=== PATIENT | male | born 1990 | race Caucasian/White ===

== ENCOUNTER 2017-04-09 12:40 | Emergency (ER) | payer SELFPAY ==
--- NOTE | 2017-04-09 13:03 | ER Document Report ---
ED General - General Chief Complaint: Medical Clearance Stated Complaint: BLOOD PRESSURE HIGH Time Seen by Provider: 04/09/17 12:52 Notes: Patient is here because he says he is withdrawing from heroin not having had any for 3 days. He did have some morphine yesterday. Complaining of his stomach being "in knots", shaky, nauseated, abdominal pain, etc. He says that he is trying to get into [facility] and[facility]or [facility]. Denies taking any other drugs except for the heroin. Has some chest pains. Says that he was seen here a couple of months ago for fluid around his heart that they wanted to stick a needle into and drain and he did not stay for treatment and has not followed up on that condition. Has not had any fever. Has had some sweats. TRAVEL OUTSIDE OF THE [place] IN LAST 30 DAYS: No - Related Data Allergies/Adverse Reactions: No Known Allergies Allergy (Unverified 10/02/12 22:33) Past Medical History - Social History Smoking Status: Current Every Day Smoker Frequency of alcohol use: Social Drug Abuse: Heroin, Other Family History: None, Reviewed & Not Pertinent Patient has suicidal ideation: No Patient has homicidal ideation: No - Past Medical History Cardiac Medical History: Reports: Other - See HPI regarding fluid around his heart. 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 EENT: Denies eye, ear, nose or mouth or throat pain or other symptoms. CARDIOVASCULAR: Has occasional chest pains, not at this time. RESPIRATORY: Denies cough, chest congestion, or shortness of breath. GASTROINTESTINAL: Patient has a generalized abdominal cramping and nausea but has not been vomiting. Has not had diarrhea. GENITOURINARY: Denies difficulty or painful urinating, urinary frequency, blood in urine. MUSCULOSKELETAL: Denies back or neck pain. Denies joint pain or swelling. SKIN: Denies rash or skin lesions. NEUROLOGICAL: Denies LOC or altered mental status. Denies headache. Denies sensory loss or motor deficits. ALL OTHER SYSTEMS REVIEWED AND NEGATIVE. Physical Exam - Vital signs Vitals: Temp Pulse Resp BP Pulse Ox 98.7 F 72 24 H 141/88 H 99 04/09/17 12:41 04/09/17 12:41 04/09/17 12:41 04/09/17 12:41 04/09/17 12:41 Interpretation: Normal - Notes Notes: PHYSICAL EXAMINATION: GENERAL: Well-appearing, in no acute distress. Vital signs are all essentially normal. Minor elevation of blood pressure and respiratory rate. Afebrile. HEAD: Atraumatic, normocephalic. EYES: Pupils equal round and reactive to light, extraocular movements intact. ENT: oropharynx clear without exudates. Moist mucous membranes. NECK: Normal range of motion, supple. LUNGS: Breath sounds clear and equal bilaterally. HEART: Regular rate and rhythm without murmurs. ABDOMEN: Soft, nontender. No guarding or rebound. BACK: No tenderness throughout entire back. EXTREMITIES: Normal range of motion without pain. NEUROLOGICAL: Normal speech, normal gait. Normal sensory, motor, and reflex exams. Awake, alert, and oriented x3. Cranial nerves normal. PSYCH: Normal mood, normal affect. Anxious. SKIN: Warm, dry, no rashes. Course - Re-evaluation Re-evalutation: 04/09/17 14:54 Reviewing patient's visits in November 2015, but nothing since then. I am not sure where the patient got that he was here a couple of months ago when it has actually been 15 or 16 months. Further, when he was here in November,, his final diagnosis was pericarditis, but his EKG was read by the scene as suggestive of pericarditis. The patient's chest x-ray showed a very small heart and no evidence of fluid around it and there is no mention of trying to stick a needle in the fluid. I think the patient has early repolarization and a normal variant ST elevation and nothing pathologic. All of his lab work here today is normal, normal white cell count, no fever, etc. Patient's drug screen is positive for not only opioids, but marijuana and cocaine. - Vital Signs Vital signs: Temp Pulse Resp BP Pulse Ox 98.7 F 72 24 H 141/88 H 99 04/09/17 12:41 04/09/17 12:41 04/09/17 12:41 04/09/17 12:41 04/09/17 12:41 - Laboratory Result Diagrams: 04/09/17 13:00 04/09/17 13:00 Laboratory results interpreted by me: 04/09/17 04/09/17 13:00 13:00 Eosinophils % 8.5 H Salicylates < 1.0 L Acetaminophen < 10 L - Diagnostic Test Radiology results interpreted by me: 04/09/17 14:25 Chest x-ray is normal. - EKG Interpretation by Me EKG shows normal: Sinus rhythm Rate: Normal Rhythm: NSR Additional EKG results interpreted by me: 04/09/17 14:25 EKG has some peaked T waves in the precordial leads along with some ST changes that the machine says is suggestive of pericarditis, but I think it is more likely early repolarization which he has had on a previous EKG here a year ago. 04/09/17 14:55 Discharge - Discharge Clinical Impression: Substance abuse Condition: Stable Disposition: HOME, SELF-CARE Additional Instructions: COCAINE ABUSE: Cocaine causes many dangerous medical problems. Problems can occur even with "usual" amounts. Cocaine affects judgement, creating a sense of invulnerability. Cocaine users often make bad decisions that seem "great" at the time. Most cocaine users eventually will be hurt by bad job performance, damaged personal relations, crime, and unsafe sexual practices. Toxic effects of cocaine can include seizures, hallucinations, delusions, high blood pressure, heart damage, or sudden . There's always the risk of a "bad batch." But heart attacks, brain hemorrhages, or cardiac arrest can occur unpredictably even with "normal" use. Injection of cocaine is risky for abscesses, endocarditis (heart infection) , pneumonia, and AIDS. Withdrawal from cocaine often causes anxiety and drug cravings. Some users become paranoid and psychotic. Many treatment programs are available, but you must make the decision to quit. Medication can be prescribed to control the symptoms of cocaine toxicity (beta blockers or benzodiazepines). Withdrawal symptoms may require tranquilizers. NARCOTIC / OPIOD ABUSE: Narcotics and opiods are pain-relieving drugs that are often abused. They are addicting. Narcotics cause euphoria, but it often takes increasing amounts to "feel good" and avoid withdrawal symptoms. Overdose of narcotics causes small pupils, coma, and decreased breathing. It's a common cause of . Purity of street narcotics is unpredictable. Injection of narcotics is risky for abscesses, endocarditis (heart infection), pneumonia, and AIDS. Withdrawal from narcotics causes goose bumps, watery mouth, sweating, nasal congestion, muscle aches, abdominal cramps, vomiting, and diarrhea. There 's often restlessness and confusion. Treatment programs are available, but you must make the decision to quit. Medication (such as clonidine) can be prescribed to control the symptoms of withdrawal. INSTRUCTIONS FOR HOME CARE FOLLOWING DRUG OVERDOSAGE: The doctor feels it's safe for you to go home. You will need to be observed. If charcoal and a laxative was given to you, expect some loose black stools soon. Take no medications unless approved by a physician, including alcohol. If drowsy, lie on your stomach or side for sleeping to avoid aspiration if vomiting occurs. Take only liquids by mouth until there is no more nausea. FOR THE OBSERVER: Observe the patient for the next 24 hours and call or go to the hospital if any of the following are noted: prolonged or repeated vomiting, difficulty in arousing, convulsions (seizures or fits), fever, persistent cough, breathing that is too slow or too rapid, or confused or bizarre behavior. If a counselling visit has been arranged, make sure the patient attends. Call the physician or poison control if you have questions. Your symptoms from withdrawal should essentially be over very soon. Your evaluation and findings upon examination as well as lab studies, or all essentially unremarkable and you appear to be medically stable for discharge. FOLLOW-UP CARE: If you have been referred to a physician for follow-up care, call the physician s office for an appointment as you were instructed or within the next two days. If you experience worsening or a significant change in your symptoms, notify the physician immediately or return to the Emergency Department at any time for re-evaluation. Follow-up at [facility] as has been arranged..
[2017-04-09 13:18] LABS: ABSOLUTE EOSINOPHILS # (AUTO) 0.6 10^3/uL (0.0-0.6); ABSOLUTE LYMPHOCYTES (AUTO) 2.4 10^3/uL (0.5-4.7); ABSOLUTE MONOCYTES (AUTO) 0.7 10^3/uL (0.1-1.4); ABSOLUTE NEUT (AUTO) 3.8 10^3/uL (1.7-8.2); BASOPHILS % (AUTO) 0.4 % (0-2); EOSINOPHILS % (AUTO) 8.5 % (0-6); HEMOGLOBIN 14.3 g/dL (13.5-17.0); HGB HCT DIFFERENCE 1.9; LYMPHOCYTES % (AUTO) 31.8 % (13-45); MEAN CORPUSCULAR HEMOGLOBIN 30.5 pg (27.0-33.4); MEAN CORPUSCULAR HGB CONC 34.9 g/dL (32.0-36.0); MEAN CORPUSCULAR VOLUME 88 fl (80-97); MONOCYTES % (AUTO) 9.5 % (3-13); RED BLOOD COUNT 4.69 10^6/uL (4.35-5.55); RED CELL DISTRIBUTION WIDTH 13.4 % (11.5-14.0); SEGMENTED NEUTROPHILS % (AUTO) 49.8 % (42-78); WHITE BLOOD COUNT 7.7 10^3/uL (4.0-10.5)
--- NOTE | 2017-04-09 13:28 | EKG REPORT ---
SEVERITY:- ABNORMAL ECG - SINUS RHYTHM ST ELEVATION SUGGESTS PERICARDITIS : Confirmed by: María Elena Callejas 09-Apr-2017 13:28:07
[2017-04-09 13:30] LABS: APPEARANCE,URINE CLEAR; BILIRUBIN,URINE NEGATIVE (NEGATIVE); GLUCOSE, URINE NEGATIVE (NEGATIVE); KETONES,URINE NEGATIVE (NEGATIVE); LEUKOCYTE ESTERASE,URINE NEGATIVE (NEGATIVE); NITRITE,URINE NEGATIVE (NEGATIVE); PROTEIN,URINE NEGATIVE (NEGATIVE); URINE SPECIFIC GRAVITY 1.013; UROBILINOGEN,URINE NEGATIVE mg/dL (<2.0)
[2017-04-09 13:45] LABS: URINE BARBITURATES SCREEN NEGATIVE; URINE METHADONE SCREEN NEGATIVE; URINE OPIATES LOW UNCONFIRMED POSITIVE; URINE PHENCYCLIDINE SCREEN NEGATIVE
[2017-04-09 13:56] LABS: ALANINE AMINOTRANSFERASE 21 U/L (21-72); ALBUMIN 4.3 g/dL (3.5-5.0); ALKALINE PHOSPHATASE 63 U/L (38-126); ANION GAP 12 (5-19); ASPARTATE AMINO TRANSFERASE 22 U/L (17-59); BILIRUBIN,DIRECT 0.3 mg/dL (0.0-0.4); BILIRUBIN,TOTAL 0.4 mg/dL (0.2-1.3); BLOOD UREA NITROGEN 9 mg/dL (7-20); CALCIUM 9.3 mg/dL (8.4-10.2); CARBON DIOXIDE 26 mmol/L (22-30); CHLORIDE 103 mmol/L (98-107); CREATININE RESULT 0.88 mg/dL (0.52-1.25); GLUCOSE 84 mg/dL (75-110); POTASSIUM 4.6 mmol/L (3.6-5.0); SODIUM 141.1 mmol/L (137-145); TOTAL PROTEIN 7.1 g/dL (6.3-8.2)
[2017-04-09 13:58] LABS: ALCOHOL < 10 mg/dL (NONE DETECTED)
--- NOTE | 2017-04-09 14:02 | RADIOLOGY REPORT (SQ) ---
EXAM DESCRIPTION: CHEST PA/LAT COMPLETED DATE/TIME: 04/09/2017 1:19 pm REASON FOR STUDY: Chest pain, Hx fluid around lungs COMPARISON: November 2015 EXAM PARAMETERS: NUMBER OF VIEWS: two views TECHNIQUE: Digital Frontal and Lateral radiographic views of the chest acquired. RADIATION DOSE: NA LIMITATIONS: none FINDINGS: LUNGS AND PLEURA: No opacities, masses or pneumothorax. No pleural effusion. MEDIASTINUM AND HILAR STRUCTURES: No masses or contour abnormalities. HEART AND VASCULAR STRUCTURES: Heart normal size. No evidence for failure. BONES: No acute findings. HARDWARE: None in the chest. OTHER: No other significant finding. IMPRESSION: NO SIGNIFICANT RADIOGRAPHIC FINDING IN THE CHEST. TECHNICAL DOCUMENTATION: JOB ID: [id number] [employer]- All Rights Reserved
--- NOTE | 2017-04-09 15:00 | ER Document Report ---
ED Psych Disorder / Suicide - General Chief Complaint: Medical Clearance Stated Complaint: BLOOD PRESSURE HIGH Time Seen by Provider: 04/09/17 12:52 TRAVEL OUTSIDE OF THE [place] IN LAST 30 DAYS: No - HPI Notes: Patient is here because he says he is withdrawing from heroin not having had any for 3 days. He did have some morphine yesterday. Complaining of his stomach being "in knots", shaky, nauseated, abdominal pain, etc. He says that he is trying to get into [facility] and/or [facility] for detox. Denies taking any other drugs except for the heroin. Patient states he is here for medical clearance. He stated [facility] sent him here to see if [facility] "therapist" would prescribe "something" to help with withdrawals until he can get a bed in detox. Patient continued to state he last used yesterday but the last time he "shot up" was 3 days ago. Patient uses "meth, heroin, percocets...anything I can get." He reported he has never been to substance abuse treatment and wants to obtain sobriety "for my and kids...I am tired of living like this." Patient reports this morning he was shaking and sweating. Patient is alert and orientated to person place time and circumstance. Patient denies suicidal/homicidal ideation. Patient denies auditory visual hallucinations. Delusions were absent and behaviors congruent with intact reality based presentation i.e. organized, linear, rational thinking. Thought content centered around sobriety. Conversational speech was within normal rate tone and prosody. Eye contact was well-maintained. Intellectual abilities appear to be within average range. Attention and concentration were good. Insight, judgment, impulse control appear to be fair. polysubstance abuse Impression\\plan: Patient is considered psychiatrically clear for discharge. Patient does not meet IVC criteria per [place] GS 122C. Patient denies suicidal homicidal ideation. Delusions were absent behaviors were congruent with intact reality based presentation i.e. organized, linear, rational thinking. Patient requesting information assistance with sobriety over the weekend until bed is available through [facility] [email or web address]. Clinician provided resources for community to include [facility]. Clinician explained to patient Suboxone, Subutex, and methadone are not available through the emergency department. Dr. Rodrigues was consulted on the care and management of this patient; attending physician is in agreement with recommendations and disposition. - Related Data Allergies/Adverse Reactions: No Known Allergies Allergy (Unverified 10/02/12 22:33) Past Medical History - Social History Smoking Status: Current Every Day Smoker Frequency of alcohol use: Social Drug Abuse: Heroin, Other Family History: None, Reviewed & Not Pertinent Patient has suicidal ideation: No Patient has homicidal ideation: No - Past Medical History Cardiac Medical History: Reports: Other - See HPI regarding fluid around his heart. 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 - Immunizations Immunizations up to date: Yes Hx Diphtheria, Pertussis, Tetanus Vaccination: Yes Physical Exam - Vital signs Vitals: Temp Pulse Resp BP Pulse Ox 98.7 F 72 24 H 141/88 H 99 04/09/17 12:41 04/09/17 12:41 04/09/17 12:41 04/09/17 12:41 04/09/17 12:41 Course - Vital Signs Vital signs: Temp Pulse Resp BP Pulse Ox 98.7 F 72 24 H 141/88 H 99 04/09/17 12:41 04/09/17 12:41 04/09/17 12:41 04/09/17 12:41 04/09/17 12:41 - Laboratory Result Diagrams: 04/09/17 13:00 04/09/17 13:00 Laboratory results interpreted by me: 04/09/17 04/09/17 13:00 13:00 Eosinophils % 8.5 H Salicylates < 1.0 L Acetaminophen < 10 L Discharge - Discharge Clinical Impression: Substance abuse Condition: Stable Disposition: HOME, SELF-CARE Additional Instructions: COCAINE ABUSE: Cocaine causes many dangerous medical problems. Problems can occur even with "usual" amounts. Cocaine affects judgement, creating a sense of invulnerability. Cocaine users often make bad decisions that seem "great" at the time. Most cocaine users eventually will be hurt by bad job performance, damaged personal relations, crime, and unsafe sexual practices. Toxic effects of cocaine can include seizures, hallucinations, delusions, high blood pressure, heart damage, or sudden . There's always the risk of a "bad batch." But heart attacks, brain hemorrhages, or cardiac arrest can occur unpredictably even with "normal" use. Injection of cocaine is risky for abscesses, endocarditis (heart infection) , pneumonia, and AIDS. Withdrawal from cocaine often causes anxiety and drug cravings. Some users become paranoid and psychotic. Many treatment programs are available, but you must make the decision to quit. Medication can be prescribed to control the symptoms of cocaine toxicity (beta blockers or benzodiazepines). Withdrawal symptoms may require tranquilizers. NARCOTIC / OPIOD ABUSE: Narcotics and opiods are pain-relieving drugs that are often abused. They are addicting. Narcotics cause euphoria, but it often takes increasing amounts to "feel good" and avoid withdrawal symptoms. Overdose of narcotics causes small pupils, coma, and decreased breathing. It's a common cause of . Purity of street narcotics is unpredictable. Injection of narcotics is risky for abscesses, endocarditis (heart infection), pneumonia, and AIDS. Withdrawal from narcotics causes goose bumps, watery mouth, sweating, nasal congestion, muscle aches, abdominal cramps, vomiting, and diarrhea. There 's often restlessness and confusion. Treatment programs are available, but you must make the decision to quit. Medication (such as clonidine) can be prescribed to control the symptoms of withdrawal. INSTRUCTIONS FOR HOME CARE FOLLOWING DRUG OVERDOSAGE: The doctor feels it's safe for you to go home. You will need to be observed. If charcoal and a laxative was given to you, expect some loose black stools soon. Take no medications unless approved by a physician, including alcohol. If drowsy, lie on your stomach or side for sleeping to avoid aspiration if vomiting occurs. Take only liquids by mouth until there is no more nausea. FOR THE OBSERVER: Observe the patient for the next 24 hours and call or go to the hospital if any of the following are noted: prolonged or repeated vomiting, difficulty in arousing, convulsions (seizures or fits), fever, persistent cough, breathing that is too slow or too rapid, or confused or bizarre behavior. If a counselling visit has been arranged, make sure the patient attends. Call the physician or poison control if you have questions. Your symptoms from withdrawal should essentially be over very soon. Your evaluation and findings upon examination as well as lab studies, or all essentially unremarkable and you appear to be medically stable for discharge. FOLLOW-UP CARE: If you have been referred to a physician for follow-up care, call the physician s office for an appointment as you were instructed or within the next two days. If you experience worsening or a significant change in your symptoms, notify the physician immediately or return to the Emergency Department at any time for re-evaluation. Follow-up at [facility] as has been arranged..
[2017-04-09 15:06] VITALS: BP 125/78
== END 2017-04-09 14:40 | disposition home or self-care (01) ==
LOC: ER 12:40
DX: F11.10 Opioid abuse, uncomplicated (principal); R11.0 Nausea; R10.9 Unspecified abdominal pain; R07.9 Chest pain, unspecified; F17.200 Nicotine dependence, unspecified, uncomplicated; R03.0 Elevated blood-pressure reading, without diagnosis of hypertension; F41.9 Anxiety disorder, unspecified
CPT/HCPCS: 36415; 71020; 80053; 80307; 81001; 85025; 93005; 93010; 99283

== ENCOUNTER 2017-09-29 12:36 | Emergency (ER) | payer MEDICAID, OTHER ==
[2017-09-29 12:45] VITALS: BP 146/102
[2017-09-29] MEDS ORDERED: NORMAL SALINE 1000 ML 1,000 ML IV ONE (13:18)
[2017-09-29] MEDS ORDERED: ONDANSETRON HCL INJ/PF 4 MG/2 ML SDV IV ONE (13:18)
[2017-09-29] MEDS ORDERED: NALOXONE HCL INJ 2 MG/2 ML DISP.SYRIN IV ONE (13:19)
--- NOTE | 2017-09-29 13:19 | ER Document Report ---
ED Medical Screen (RME) - General Mode of Arrival: Wheelchair Information source: Patient TRAVEL OUTSIDE OF THE [place] IN LAST 30 DAYS: No <MARIO CORONADO - Last Filed: 09/29/17 13:19> <MELLISA MARTIN - Last Filed: 09/29/17 14:52> <MAUREEN STEEL - Last Filed: 09/29/17 20:09> - General Chief Complaint: Drug Abuse Stated Complaint: POSSIBLE DRUG OVERDOSE Time Seen by Provider: 09/29/17 12:56 Notes: Patient is a 27 year old male presenting to the emergency department for a possible drug overdose. Mother and sister at bedside states patient came in this morning "stumbling". Mother states the patient has had multiple episodes of seizures and loss of consciouness. Patient states he took Xanaz, 8-10 bags of heroin IM, and smoked marijuana. Mother states he went to a detox in March of 2017. I have greeted and performed a rapid initial assessment of this patient. A comprehensive ED assessment and evaluation of the patient, analysis of test results and completion of the medical decision making process will be conducted by additional ED providers. 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 - Immunizations Immunizations up to date: Yes Hx Diphtheria, Pertussis, Tetanus Vaccination: Yes <MARIO CORONADO - Last Filed: 09/29/17 13:19> Physical Exam - General General appearance: Alert, Anxious In distress: None - HEENT Head: Normocephalic, Atraumatic Eyes: Normal - Respiratory Respiratory status: No respiratory distress Chest status: Nontender Breath sounds: Normal Chest palpation: Normal - Cardiovascular Rhythm: Regular Heart sounds: Normal auscultation Murmur: No Friction rub: No Gallop: None auscultated - Extremities General upper extremity: Normal ROM General lower extremity: Normal ROM Elbow: Other - Track torres Left AC - Skin Skin Temperature: Warm Skin Moisture: Dry Skin Color: Normal <MARIO CORONADO - Last Filed: 09/29/17 13:19> <MELLISA MARTIN - Last Filed: 09/29/17 14:52> <MAUREEN STEEL - Last Filed: 09/29/17 20:09> - Vital signs Vitals: Temp Pulse Resp BP Pulse Ox 97.4 F 92 16 146/102 H 100 09/29/17 12:43 09/29/17 12:43 09/29/17 12:43 09/29/17 12:43 09/29/17 12:43 - Psychological Notes: Patient is somnolent (MARIO CORONADO) Course - Laboratory Result Diagrams: 09/29/17 14:00 09/29/17 14:00 <MELLISA MARTIN - Last Filed: 09/29/17 14:52> - Laboratory Result Diagrams: 09/29/17 14:00 09/29/17 14:00 <MAUREEN STEEL - Last Filed: 09/29/17 20:09> - Vital Signs Vital signs: Temp Pulse Resp BP Pulse Ox 97.4 F 92 16 146/102 H 100 09/29/17 12:43 09/29/17 12:43 09/29/17 12:43 09/29/17 12:43 09/29/17 12:43 - Laboratory Laboratory results interpreted by me: 09/29/17 09/29/17 14:00 14:00 WBC 11.6 H Carbon Dioxide 31 H Salicylates < 1.0 L Acetaminophen < 10 L Doctor's Discharge <MARIO CORONADO - Last Filed: 09/29/17 13:19> <MELLISA MARTIN - Last Filed: 09/29/17 14:52> <MAUREEN STEEL - Last Filed: 09/29/17 20:09> - Discharge Clinical Impression: Opioid abuse, Seizures, Dental caries Condition: Fair Disposition: HOME, SELF-CARE Additional Instructions: Aloe up with the resources given. Follow-up with your dentist as planned. Continue the penicillin. Return to the emergency room for any concerns that you are getting worse. NARCOTIC / OPIOD ABUSE Narcotics and opiods are pain-relieving drugs that are often abused. They are addicting. Narcotics cause euphoria, but it often takes increasing amounts to "feel good" and avoid withdrawal symptoms. Overdose of narcotics causes small pupils, coma, and decreased breathing. It's a common cause of . Purity of street narcotics is unpredictable. Injection of narcotics is risky for abscesses, endocarditis (heart infection), pneumonia, and AIDS. Withdrawal from narcotics causes goose bumps, watery mouth, sweating, nasal congestion, muscle aches, abdominal cramps, vomiting, and diarrhea. There 's often restlessness and confusion. Treatment programs are available, but you must make the decision to quit. Medication (such as clonidine) can be prescribed to control the symptoms of withdrawal. FOLLOW-UP CARE: You declined to have the behavioral health team at [facility] assist you to facilitate substance use treatment. You have been given resources for detox and rehab services and it is recommended you follow up with [facility] to begin treatment for your opioid substance use. You have also been given contact information for [facility] to utilize as needed. If you experience worsening or a significant change in your symptoms, notify the physician immediately or return to the Emergency Department at any time for re-evaluation. Referrals: [facility] [Outside] - Follow up as needed [facility] [Outside] - Follow up as needed Scribe Documentation - Scribe Written by Julio:: Julio Foley, 09/29/2017 13:29 acting as scribe for :: Long <MARIO CORONADO - Last Filed: 09/29/17 13:19>
--- NOTE | 2017-09-29 14:15 | RADIOLOGY REPORT (SQ) ---
EXAM DESCRIPTION: CT HEAD WITHOUT COMPLETED DATE/TIME: 09/29/2017 2:05 pm REASON FOR STUDY: ams COMPARISON: None. TECHNIQUE: Axial images acquired through the brain without intravenous contrast. Images reviewed wi th bone, brain and subdural windows. Images stored on PACS. All CT scanners at this facility use dose modulation, iterative reconstruction, and/or weight based d osing when appropriate to reduce radiation dose to as low as reasonably achievable (ALARA). [facility]: Dose Right [facility]: CareDose [facility]: Dose Right [facility]: Teradose 4D [facility]: Smart Can'tWait RADIATION DOSE: mGy. LIMITATIONS: None. FINDINGS: VENTRICLES: Normal size and contour. CEREBRUM: No masses. No hemorrhage. No midline shift. No evidence for acute infarction. Normal gra y/white matter differentiation. No areas of low density in the white matter. CEREBELLUM: No masses. No hemorrhage. No alteration of density. No evidence for acute infarction. EXTRAAXIAL SPACES: No fluid collections. No masses. ORBITS AND GLOBE: No intra- or extraconal masses. Normal contour of globe without masses. CALVARIUM: No fracture. PARANASAL SINUSES: Mucosal polyp retention cyst is identified in the right maxillary antra. SOFT TISSUES: No mass or hematoma. OTHER: No other significant finding. IMPRESSION: NORMAL BRAIN CT WITHOUT CONTRAST. EVIDENCE OF ACUTE STROKE: NO. COMMENT: Quality ID # [id number]: Final reports with documentation of one or more dose reduction techniques (e.g., Automated exposure control, adjustment of the mA and/or kV according to patient size, use of iterative reconstruction technique) TECHNICAL DOCUMENTATION: JOB ID: [id number]- All Rights Reserved
[2017-09-29 14:22] LABS: ABSOLUTE BASOPHILS # (AUTO) 0.1 10^3/uL (0.0-0.2); ABSOLUTE EOSINOPHILS # (AUTO) 0.5 10^3/uL (0.0-0.6); ABSOLUTE LYMPHOCYTES (AUTO) 2.8 10^3/uL (0.5-4.7); ABSOLUTE NEUT (AUTO) 7.3 10^3/uL (1.7-8.2); BASOPHILS % (AUTO) 0.6 % (0-2); EOSINOPHILS % (AUTO) 4.5 % (0-6); HEMATOCRIT 43.6 % (37.9-51.0); HEMOGLOBIN 14.8 g/dL (13.5-17.0); LYMPHOCYTES % (AUTO) 24.2 % (13-45); MEAN CORPUSCULAR HEMOGLOBIN 28.9 pg (27.0-33.4); MEAN CORPUSCULAR VOLUME 85 fl (80-97); MONOCYTES % (AUTO) 8.3 % (3-13); PLATELET COUNT 320 10^3/uL (150-450); RED BLOOD COUNT 5.12 10^6/uL (4.35-5.55); RED CELL DISTRIBUTION WIDTH 13.5 % (11.5-14.0); SEGMENTED NEUTROPHILS % (AUTO) 62.4 % (42-78); TOTAL CELLS COUNTED % (AUTO) 100 %; WHITE BLOOD COUNT 11.6 10^3/uL (4.0-10.5)
[2017-09-29 14:38] LABS: ALANINE AMINOTRANSFERASE 25 U/L (21-72); ALBUMIN 4.2 g/dL (3.5-5.0); ALKALINE PHOSPHATASE 49 U/L (38-126); ANION GAP 7 (5-19); ASPARTATE AMINO TRANSFERASE 22 U/L (17-59); BILIRUBIN,DIRECT 0.1 mg/dL (0.0-0.4); BILIRUBIN,TOTAL 0.4 mg/dL (0.2-1.3); BLOOD UREA NITROGEN 7 mg/dL (7-20); CALCIUM 9.6 mg/dL (8.4-10.2); CARBON DIOXIDE 31 mmol/L (22-30); CHLORIDE 100 mmol/L (98-107); CREATINE KINASE 105 U/L (55-170); GLUCOSE 78 mg/dL (75-110); MAGNESIUM 2.1 mg/dL (1.6-2.3); POTASSIUM 4.5 mmol/L (3.6-5.0); SODIUM 138.2 mmol/L (137-145); TOTAL PROTEIN 6.5 g/dL (6.3-8.2)
[2017-09-29 14:39] LABS: URINE AMPHETAMINES SCREEN NEGATIVE; URINE BARBITURATES SCREEN NEGATIVE; URINE BENZODIAZEPINES SCREEN UNCONFIRMED POSITIVE; URINE COCAINE SCREEN NEGATIVE; URINE MARIJUANA (THC) SCREEN UNCONFIRMED POSITIVE; URINE METHADONE SCREEN NEGATIVE; URINE PHENCYCLIDINE SCREEN NEGATIVE
[2017-09-29 14:39] LABS: ACETAMINOPHEN < 10 ug/mL (10-30); ALCOHOL < 10 mg/dL (NONE DETECTED); SALICYLATE < 1.0 mg/dL (2.0-20.0)
--- NOTE | 2017-09-29 15:09 | ER Document Report ---
ED General - General Chief Complaint: Drug Abuse Stated Complaint: POSSIBLE DRUG OVERDOSE Time Seen by Provider: 09/29/17 12:56 Mode of Arrival: Wheelchair Information source: Patient Notes: This is a 27-year-old man with a history of substance abuse who presents to the emergency room after a seizure at home. Patient's mother states that he has had seizures in the past which is been related to his drug use. Patient is now fully alert and oriented 3. He appears to have capacity. He states that he has dental problems and he has pain from the dental problems and that he uses drugs because he is in pain. The patient states he is on penicillin at home. TRAVEL OUTSIDE OF THE [place] IN LAST 30 DAYS: No - HPI Onset: Just prior to arrival Onset/Duration: Sudden Quality of pain: Dull Severity: Mild Pain Level: 1 Associated symptoms: Other - Toothache Exacerbated by: Denies Relieved by: Denies Similar symptoms previously: Yes Recently seen / treated by doctor: Yes - Related Data Allergies/Adverse Reactions: No Known Allergies Allergy (Unverified 10/02/12 22:33) Past Medical History - General Information source: Patient - Social History Smoking Status: Current Every Day Smoker Chew tobacco use (# tins/day): No Frequency of alcohol use: Rare Drug Abuse: Heroin, Marijuana, Prescription drugs Lives with: Family Family History: None, Reviewed & Not Pertinent Patient has suicidal ideation: No Patient has homicidal ideation: No - Past Medical History Cardiac Medical History: Reports: None Pulmonary Medical History: Reports: None Neurological Medical History: Reports: Hx Migraine Endocrine Medical History: Reports: None Renal/ Medical History: Reports: None. 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 - Immunizations Immunizations up to date: Yes Hx Diphtheria, Pertussis, Tetanus Vaccination: Yes Review of Systems - Review of Systems Constitutional: denies: Chills, Fever EENT: See HPI Cardiovascular: No symptoms reported Respiratory: No symptoms reported Gastrointestinal: No symptoms reported Genitourinary: No symptoms reported Male Genitourinary: No symptoms reported Musculoskeletal: No symptoms reported Skin: No symptoms reported Hematologic/Lymphatic: No symptoms reported Neurological/Psychological: See HPI Physical Exam - Vital signs Vitals: Temp Pulse Resp BP Pulse Ox 97.4 F 92 16 146/102 H 100 09/29/17 12:43 09/29/17 12:43 09/29/17 12:43 09/29/17 12:43 09/29/17 12:43 Notes: Physical exam: GENERAL: A 27-year-old man, alert and oriented 3 HEAD: Atraumatic, normocephalic. EYES: Pupils equal round and reactive to light, extraocular movements intact, sclera anicteric, conjunctiva are normal. ENT: Oropharynx shows significant dental caries without obvious abscess. Moist mucous membranes. NECK: Normal range of motion, supple without obvious mass or JVD. LUNGS: Breath sounds clear to auscultation bilaterally and equal. No wheezes rales or rhonchi. HEART: Regular rate and rhythm without murmurs, rubs or gallops. ABDOMEN: Soft, normoactive bowel sounds. No tenderness to palpation. No guarding, no rebound. No masses appreciated. EXTREMITIES: Normal range of motion, no pitting or edema. No clubbing or cyanosis. NEUROLOGICAL: Cranial nerves II through XII grossly intact. Normal speech, moving all extremities. PSYCH: Normal mood, normal affect. SKIN: Warm, Dry, normal turgor, no rashes or lesions noted. Course - Re-evaluation Re-evalutation: 09/30/17 01:20 Note: The patient is accompanied by his mother. He does have a history of seizures in the setting of drug abuse in the past. The patient is fully alert and oriented 3. He was counseled by the community mental health social worker regarding rehab facilities but he is not interested in that right now. The patient is complaining of dental pain. He is currently on penicillin and has follow-up with a dentist. He clearly would like narcotic for his dental pain which I am unwilling to do given circumstances of his presentation and his substance abuse. I have explained this to both the patient and his mother. Patient's mother seems to understand this. The patient is rather unhappy with the fact that I am not prescribing him narcotics. He states he will not go to rehab until his dental pain goes away. He appears to have the capacity to make these decisions himself. He appears quite competent and alert. - Vital Signs Vital signs: Temp Pulse Resp BP Pulse Ox 97.4 F 92 16 146/102 H 100 09/29/17 12:43 09/29/17 12:43 09/29/17 12:43 09/29/17 12:43 09/29/17 12:43 - Laboratory Result Diagrams: 09/29/17 14:00 09/29/17 14:00 Laboratory results interpreted by me: 09/29/17 09/29/17 14:00 14:00 WBC 11.6 H Carbon Dioxide 31 H Salicylates < 1.0 L Acetaminophen < 10 L Discharge - Discharge Clinical Impression: Opioid abuse, Seizures, Dental caries Condition: Fair Disposition: HOME, SELF-CARE Additional Instructions: Aloe up with the resources given. Follow-up with your dentist as planned. Continue the penicillin. Return to the emergency room for any concerns that you are getting worse. NARCOTIC / OPIOD ABUSE Narcotics and opiods are pain-relieving drugs that are often abused. They are addicting. Narcotics cause euphoria, but it often takes increasing amounts to "feel good" and avoid withdrawal symptoms. Overdose of narcotics causes small pupils, coma, and decreased breathing. It's a common cause of . Purity of street narcotics is unpredictable. Injection of narcotics is risky for abscesses, endocarditis (heart infection), pneumonia, and AIDS. Withdrawal from narcotics causes goose bumps, watery mouth, sweating, nasal congestion, muscle aches, abdominal cramps, vomiting, and diarrhea. There 's often restlessness and confusion. Treatment programs are available, but you must make the decision to quit. Medication (such as clonidine) can be prescribed to control the symptoms of withdrawal. FOLLOW-UP CARE: You declined to have the behavioral health team at [facility] assist you to facilitate substance use treatment. You have been given resources for detox and rehab services and it is recommended you follow up with [facility] to begin treatment for your opioid substance use. You have also been given contact information for [facility] to utilize as needed. If you experience worsening or a significant change in your symptoms, notify the physician immediately or return to the Emergency Department at any time for re-evaluation. Referrals: [facility] [Outside] - Follow up as needed [facility] [Outside] - Follow up as needed
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
== END 2017-09-29 15:14 | disposition home or self-care (01) ==
LOC: ER 12:36
DX: R56.9 Unspecified convulsions (principal); F11.10 Opioid abuse, uncomplicated; K02.9 Dental caries, unspecified; F19.10 Other psychoactive substance abuse, uncomplicated; F17.200 Nicotine dependence, unspecified, uncomplicated
CPT/HCPCS: 99285; 96361; 96374; 96375; 36415; 80307 ×4; 82550; 83735; 85025; 80053; 70450; J2405; J2310; J7030

== ENCOUNTER 2018-02-07 06:55 | Emergency (ER) | payer MEDICAID ==
[2018-02-07] MEDS ORDERED: MORPHINE SULFATE 10 MG/ML INJ IV ONE (08:04)
--- NOTE | 2018-02-07 08:05 | ER Document Report ---
ED General - General Chief Complaint: Ear Pain Stated Complaint: EAR PAIN Time Seen by Provider: 02/07/18 07:43 Mode of Arrival: Ambulatory Information source: Patient, Relative TRAVEL OUTSIDE OF THE [place] IN LAST 30 DAYS: No - HPI Notes: 27-year-old male presents to the ED for complaints of severe left-sided ear pain suddenly last night. Patient has had congestion, sinus pressure and pain for the last 3-4 days. Has not tried any [id number] medication for his pain. Reports he has pain behind his ear as well reports some chills but unsure fevers. Pain is 9 out of 10, sharp and shooting, worse with time, nothing makes better. Has not tried any icing or heating. Denies any trauma to the ear. Patient does smoke cigarettes. Denies any facial palsy. denies chest pain,palpitations, shortness of breath, dyspnea, nausea, vomiting, diarrhea, abdominal pain, hematuria,blurred vision, double vision, loss of vision, speech changes, LH, dizziness, syncope, wheezing, ST, neck pain, weakness, bowel or bladder dysfunction, saddle anesthesia, numbness or tingling in bilateral upper or lower extremities equally, muscle paralysis, weakness in bilateral upper or lower extremities equally or rash. Denies IV drug use. - Related Data Allergies/Adverse Reactions: No Known Allergies Allergy (Verified 02/07/18 06:57) Past Medical History - General Information source: Patient, Parent - Social History Smoking Status: Current Every Day Smoker Chew tobacco use (# tins/day): - 60 Frequency of alcohol use: None Drug Abuse: None Family History: None, Reviewed & Not Pertinent Patient has suicidal ideation: No Patient has homicidal ideation: No 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 - Immunizations Immunizations up to date: Yes Hx Diphtheria, Pertussis, Tetanus Vaccination: Yes Review of Systems - Review of Systems Constitutional: See HPI EENT: See HPI Cardiovascular: No symptoms reported Respiratory: No symptoms reported Gastrointestinal: No symptoms reported Genitourinary: No symptoms reported Male Genitourinary: No symptoms reported Musculoskeletal: No symptoms reported Skin: No symptoms reported Hematologic/Lymphatic: No symptoms reported Neurological/Psychological: No symptoms reported -: Yes All other systems reviewed and negative Physical Exam - Vital signs Vitals: Temp Pulse Resp BP Pulse Ox 98.2 F 71 18 138/96 H 100 02/07/18 07:00 02/07/18 07:00 02/07/18 07:00 02/07/18 07:00 02/07/18 07:00 - Notes Notes: PHYSICAL EXAMINATION: GENERAL: Well-appearing, well-nourished and in no moderate to severe distress HEAD: Atraumatic, normocephalic. EYES: Pupils equal round and reactive to light, extraocular movements intact, sclera anicteric, conjunctiva are normal. ENT: Left tympanic membranes with erythema, bulging. Left EAC with erythema, some edema. no drainage from left TM or EAC. Tenderness on palpation of left mastoid with guarding of patient. no open wounds or drainage. Right TM without erythema, intact appearing with pearly color, normal-appearing landmarks and normal light reflex. Hearing is grossly intact. Has normal facial sensation to light touch in 3 branches of the trigeminal nerve. Normal facial movement. No clicking or popping when jaw opens or closes. The nasal mucosa is moist. The septum is midline. There is no evidence of septal hematoma. The turbinates are without abnormality. No obvious abnormalities to the lips. The teeth are unremarkableNo swelling no erythema no exudate no angioedema no drooling no trismus bilateral arches equal. Uvula midline. The salivary glands appear unremarkable. The tongue is midline. The posterior pharynx is without erythema or exudate. The tonsils are normal appearing. NECK: Normal range of motion, supple with scant left subcervical lymphadenopathy LUNGS: Breath sounds clear to auscultation bilaterally and equal. No wheezes rales or rhonchi. HEART: Regular rate and rhythm without murmurs ABDOMEN: Soft, nontender, nondistended abdomen. No guarding, no rebound. No masses appreciated. Musculoskeletal: Normal range of motion, no pitting or edema. No cyanosis. NEUROLOGICAL: Cranial nerves grossly intact. Normal speech, normal gait. Normal sensory, motor exams PSYCH: Normal mood, normal affect. SKIN: Warm, Dry, normal turgor, no rashes or lesions noted. Course - Re-evaluation Re-evalutation: 06/10/18 09:29 27-year-old male who is in moderate distress, afebrile vitals stable with severe left ear pain with mastoid pain on palpation. CBC negative for leukocytosis or anemia, CMP negative for any hepatic or renal dysfunction, electrolytes normal. Concerned this patient had an infected mastoiditis due to severe mastoid pain on palpation with ear infection as well as having sinus pain for the last several days. On reevaluation, patient's pain seems to be reduced after IV pain medication. CT soft tissue neck negative for any acute infectious process or abscess with concerns of infectious mastoiditis. Given IV pain medication for pain control. Due to pertinent laboratory and diagnostic findings, suspect a low suspicion a DEEP SPACE INFECTION (e.g., ARLEN'S ANGINA OR RETROPHARYNGEAL ABSCESS), MENINGITIS, INTRACRANIAL HEMORRHAGE , or AIRWAY COMPROMISE, thus I consider the discharge disposition reasonable. Also, there is no evidence or peritonitis, sepsis, or toxicity. I have reevaluated this patient multiple times and no significant life threatening changes are noted. The patient and I have discussed the diagnosis and risks, and we agree with discharging home with close follow-up with the understanding that symptoms and presentations can change. We also discussed returning to the Emergency Department immediately if new or worsening symptoms occur. We have discussed the symptoms which are most concerning (e.g., changing or worsening pain, trouble swallowing or breathing, neck stiffness or fever) that necessitate immediate return. - Vital Signs Vital signs: Temp Pulse Resp BP Pulse Ox 98.2 F 71 18 138/96 H 100 02/07/18 07:00 02/07/18 07:00 02/07/18 07:00 02/07/18 07:00 02/07/18 07:00 - Laboratory Result Diagrams: 02/07/18 08:10 02/07/18 08:10 Discharge - Discharge Clinical Impression: Left acute suppurative otitis media Condition: Stable Disposition: HOME, SELF-CARE Instructions: Otitis Media ([facility]) Additional Instructions: T soft tissue neck was negative for any acute abscesses, infections or infectious mastoiditis. Your labs were normal. OTITIS MEDIA: You have a middle ear infection (otitis media). This is usually a complication of a cold or sore throat. The middle ear cavity becomes filled with infection. Pressure and stretching of the ear drum cause pain. Antibiotics are required. A 10 day course is usually prescribed. A decongestant may be recommended if you have a "runny nose." You may need anesthetic drops or other pain medication. A follow-up exam may be recommended to make sure the infection has completely cleared. If the ear begins to drain, it means the ear drum has ruptured. This will usually heal spontaneously. However, it means you should keep the ear dry until re-examined by a doctor. Call the physician or return for examination at once if there is severe headache, stiff neck, confusion, increasing fever, or dizziness. You should improve significantly within two days. If you're not better, call the doctor. AMOXICILLIN: Amoxicillin is a member of the penicillin family. It covers the germs likely to cause ear, bronchial, and urinary infections better than plain penicillin. Amoxicillin can be taken without regard to meals. Nausea after taking the medication is rare, but can occur. Diarrhea can occur, particularly in small children. Vaginal yeast infections and oral thrush in infants are also common. Contact your physician if these problems occur. Allergy to penicillins is common. If you have had an allergic reaction to any drug of the penicillin family, you should never take any other penicillin. Notify your doctor at once if you develop hives, itching, swelling, faintness, or shortness of breath. Less serious side effects can include nausea or diarrhea. AZITHROMYCIN: Azithromycin (Zithromax) is a broad spectrum antibiotic in the same class as erythromycin. It can treat a variety of bacterial infections, but is most frequently used for respiratory infections. Azithromycin is extremely long-lasting. It accumulates in body tissues and continues to kill bacteria for many days. In order to improve absorption, Azithromycin should be taken at least one hour before or two hours after a meal. It does not have the same strong tendency to upset the stomach as erythromycin and is usually very well tolerated. Patients who have had a rash or other true allergic reactions to erythromycin should not take this medication. Call if you develop gastrointestinal distress, severe diarrhea, rash, hives, itching, or shortness of breath. CEPHALOSPORINS: An antibiotic of the cephalosporin class has been prescribed. This type of antibiotic covers a wide variety of infections, including those of the skin, lungs, middle ear, and urinary tract. This antibiotic is somewhat similar to the penicillin family. In rare cases , a person who is allergic to penicillin will also be allergic to this medication. If you have had a severe allergic reaction to penicillin, and have not taken this antibiotic since that time, notify your doctor. Antibiotics which cover many germs ("broad spectrum" antibiotics) are more likely to cause diarrhea or "yeast" infections. Women prone to vaginal yeast problems may suffer an attack after taking this antibiotic. In infants, oral thrush (white spots "stuck" on the cheek) or yeast diaper rash may result. See your doctor if these problems occur. Call the doctor at once if you develop hives, itching, shortness of breath , or lightheadedness. FOLLOW-UP CARE: If you have been referred to a physician for follow-up care, call the physician s office for an appointment as you were instructed or within the next two days. If you experience worsening or a significant change in your symptoms, notify the physician immediately or return to the Emergency Department at any time for re-evaluation. Return immediately for any new or worsening symptoms. Follow up with primary care provider, call tomorrow to make followup appointment. Forms: Return to Work Referrals: MARLIN VERGARA MD [ACTIVE STAFF] - Follow up in 3-5 days
[2018-02-07 08:23] LABS: ABSOLUTE EOSINOPHILS # (AUTO) 0.3 10^3/uL (0.0-0.6); ABSOLUTE LYMPHOCYTES (AUTO) 1.8 10^3/uL (0.5-4.7); ABSOLUTE MONOCYTES (AUTO) 0.6 10^3/uL (0.1-1.4); ABSOLUTE NEUT (AUTO) 7.3 10^3/uL (1.7-8.2); BASOPHILS % (AUTO) 0.5 % (0-2); EOSINOPHILS % (AUTO) 2.6 % (0-6); HEMATOCRIT 40.9 % (37.9-51.0); HEMOGLOBIN 13.9 g/dL (13.5-17.0); LYMPHOCYTES % (AUTO) 18.2 % (13-45); MEAN CORPUSCULAR HEMOGLOBIN 29.5 pg (27.0-33.4); MEAN CORPUSCULAR HGB CONC 33.9 g/dL (32.0-36.0); MEAN CORPUSCULAR VOLUME 87 fl (80-97); MONOCYTES % (AUTO) 6.4 % (3-13); PLATELET COUNT 314 10^3/uL (150-450); RED BLOOD COUNT 4.71 10^6/uL (4.35-5.55); RED CELL DISTRIBUTION WIDTH 13.7 % (11.5-14.0); SEGMENTED NEUTROPHILS % (AUTO) 72.3 % (42-78); TOTAL CELLS COUNTED % (AUTO) 100 %; WHITE BLOOD COUNT 10.1 10^3/uL (4.0-10.5)
[2018-02-07 08:43] LABS: ALANINE AMINOTRANSFERASE 24 U/L (21-72); ALBUMIN 4.2 g/dL (3.5-5.0); ALKALINE PHOSPHATASE 64 U/L (38-126); ANION GAP 9 (5-19); ASPARTATE AMINO TRANSFERASE 27 U/L (17-59); BILIRUBIN,DIRECT 0.2 mg/dL (0.0-0.4); BILIRUBIN,TOTAL 0.2 mg/dL (0.2-1.3); BLOOD UREA NITROGEN 8 mg/dL (7-20); CALCIUM 9.5 mg/dL (8.4-10.2); CARBON DIOXIDE 30 mmol/L (22-30); CHLORIDE 104 mmol/L (98-107); GLUCOSE 102 mg/dL (75-110); POTASSIUM 4.4 mmol/L (3.6-5.0); SODIUM 142.7 mmol/L (137-145); TOTAL PROTEIN 7.1 g/dL (6.3-8.2)
[2018-02-07] MEDS ORDERED: FENTANYL CITRATE INJ/PF 100 MCG/2 ML AMPUL IV ONE (08:45)
[2018-02-07 08:46] LABS: C-REACTIVE PROTEIN < 5.0 mg/L (<10.0)
--- NOTE | 2018-02-07 09:02 | RADIOLOGY REPORT (SQ) ---
EXAM DESCRIPTION: CT SOFT TISSUE NECK WITH COMPLETED DATE/TIME: 02/07/2018 8:39 am REASON FOR STUDY: left mastoid pain COMPARISON: None. TECHNIQUE: Post IV contrasted scanning from skull base through lung apices with review of bone, soft tissue and lung windows. Reconstructed coronal and sagittal MPR images reviewed. All images stored on PACS. All CT scanners at this facility use dose modulation, iterative reconstruction, and/or weight based d osing when appropriate to reduce radiation dose to as low as reasonably achievable (ALARA). [facility]: Dose Right [facility]: CareDose [facility]: Dose Right [facility]: Teradose 4D [facility]: Plur[employer]em [employer]rapeutics CONTRAST TYPE AND DOSE: contrast/concentration: Isovue 370.00 mg/ml; Total Contrast Delivered: 75.0 ml; Total Saline Delivered: 55.0 ml RENAL FUNCTION: None required. The patient is less than 50 years old. RADIATION DOSE: CT Rad equipment meets quality standard of care and radiation dose reduction techniq ues were employed. CTDIvol: 9.2 mGy. DLP: 290 mGy-cm. . LIMITATIONS: None. FINDINGS: SKULL BASE: Intact. MAJOR SALIVARY GLANDS: No solid or cystic masses. No inflammatory changes. LYMPHADENOPATHY: No adenopathy. MUCOSAL MASSES OR ASYMMETRY: No mucosal masses or asymmetry. LARYNX/CORDS: No abnormal findings. VASCULAR STRUCTURES: The major vessels are patent. LUNG APICES: Clear. BONES: Intact. THYROID: Normal size. No masses. PARANASAL SINUSES: No fluid levels. Mild patchy mucosal thickening in the ethmoid and maxillary sinu ses. OTHER: Mastoid air cells are clear, no gross suggestion of mastoiditis. IMPRESSION: 1. Mild chronic appearing paranasal sinus changes. 2. No acute or suspicious soft tissu e neck findings. No abscess or gross mastoid disease. TECHNICAL DOCUMENTATION: JOB ID: [id number] Quality ID # [id number]: Final reports with documentation of one or more dose reduction techniques (e.g., Au tomated exposure control, adjustment of the mA and/or kV according to patient size, use of iterative reconstruction technique) 2010 [email or web address]- All Rights Reserved Reading location - IP/workstation name: [email or web address]
[2018-02-07 09:37] VITALS: BP 116/76
== END 2018-02-07 09:36 | disposition home or self-care (01) ==
LOC: ER 06:55
DX: H66.002 Acute suppurative otitis media without spontaneous rupture of ear drum, left ear (principal); H92.02 Otalgia, left ear; J34.89 Other specified disorders of nose and nasal sinuses; R68.83 Chills (without fever); F17.210 Nicotine dependence, cigarettes, uncomplicated
CPT/HCPCS: 99284; 96374; 36415; 83605; 85025; 86140; 80053; 70491; J3010

== ENCOUNTER 2018-03-30 10:46 | Emergency (ER) | payer MEDICAID ==
[2018-03-30] MEDS ORDERED: NORMAL SALINE 1000 ML 1,000 ML IV ONE (10:51)
--- NOTE | 2018-03-30 10:57 | ER Document Report ---
ED General - General Stated Complaint: INCREASED HEART RATE Time Seen by Provider: 03/30/18 10:50 Mode of Arrival: Medic Information source: Patient, Emergency Med Personnel Notes: 27 yr old male presents found rolling on the ground. Pt found emotional crying, noted to have hx of heroin use, admits ot using heroin last night with meth. Pt denies any today. pts h was in the 160s given ativan and fluids. TRAVEL OUTSIDE OF THE [place] IN LAST 30 DAYS: No - HPI Onset: Just prior to arrival Onset/Duration: Sudden Quality of pain: No pain Severity: Mild Pain Level: Denies Associated symptoms: Other Exacerbated by: Denies Relieved by: Denies Similar symptoms previously: Yes Recently seen / treated by doctor: Yes - Related Data Allergies/Adverse Reactions: No Known Allergies Allergy (Verified 02/07/18 06:57) Past Medical History - Social History Smoking Status: Current Every Day Smoker Cigarette use (# per day): Yes Chew tobacco use (# tins/day): No Smoking Education Provided: No Frequency of alcohol use: Occasional Drug Abuse: Heroin, Methamphetamine Family History: None, Reviewed & Not Pertinent Neurological Medical History: Reports: Hx Migraine Renal/ Medical History: Denies: Hx Peritoneal Dialysis Musculoskeletal Medical History: Reports Hx Musculoskeletal Deformity, Reports Hx Musculoskeletal Trauma Past Surgical History: Reports: Hx Cardiac Surgery - aortic valve, 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 Denies recent illness. EENT: Denies eye, ear, throat, or mouth pain or symptoms. Denies nasal or sinus congestion or discharge. Denies throat, tongue, or mouth swelling or difficulty swallowing. CARDIOVASCULAR: Denies chest pain. Denies palpitations or racing or irregular heart beat. Denies ankle edema. RESPIRATORY: Denies cough, cold, or chest congestion. Denies shortness of breath, difficulty breathing, or wheezing. GASTROINTESTINAL: Denies abdominal pain or distention. Denies nausea, vomiting , or diarrhea. Denies blood in vomitus, stools, or per rectum. Denies black, tarry stools. Denies constipation. GENITOURINARY: Denies difficulty urinating, painful urination, burning, frequency, blood in urine, or discharge. MUSCULOSKELETAL: Denies back or neck pain or stiffness. Denies joint pain or swelling. SKIN: Denies rash, lesions or sores. HEMATOLOGIC : Denies easy bruising or bleeding. LYMPHATIC: Denies swollen, enlarged glands. NEUROLOGICAL: Denies confusion or altered mental status. Denies passing out or loss of consciousness. Denies dizziness or lightheadedness. Denies headache. Denies weakness or paralysis or loss of use of either side. Denies problems with gait or speech. Denies sensory loss, numbness, or tingling. Denies seizures. PSYCHIATRIC: Tearful ALL OTHER SYSTEMS REVIEWED AND NEGATIVE. Dictation was performed using [employer] voice recognition software PHYSICAL EXAMINATION: GENERAL: Well-appearing, well-nourished and in no acute distress. HEAD: Atraumatic, normocephalic. EYES: Pupils equal round and reactive to light, extraocular movements intact, sclera anicteric, conjunctiva are normal. ENT: Nares patent, oropharynx clear without exudates. Moist mucous membranes. NECK: Normal range of motion, supple without lymphadenopathy LUNGS: Breath sounds clear to auscultation bilaterally and equal. No wheezes rales or rhonchi. HEART: Tachycardic ABDOMEN: Soft, nontender, nondistended abdomen. No guarding, no rebound. No masses appreciated. Musculoskeletal: Normal range of motion, no pitting or edema. No cyanosis. NEUROLOGICAL: Cranial nerves grossly intact. Normal speech, normal gait. Normal sensory, motor exams PSYCH: Tearful SKIN: Warm, Dry, normal turgor, no rashes or lesions noted. Physical Exam - Vital signs Vitals: Resp BP Pulse Ox 19 150/96 H 96 03/30/18 10:50 03/30/18 10:50 03/30/18 10:50 Course - Re-evaluation Re-evalutation: 03/30/18 10:55 Patient will be given further IV fluids appears to be tachycardic emotional from outside stressors as well as from drug abuse 03/30/18 17:59 Patient has been resting comfortably, he is medically cleared at this time awaiting mental health evaluation - Vital Signs Vital signs: Temp Pulse Resp BP Pulse Ox 98.3 F 103 H 11 L 119/83 98 03/30/18 10:51 03/30/18 10:51 03/30/18 17:40 03/30/18 17:40 03/30/18 17:40 - Laboratory Result Diagrams: 03/30/18 10:05 03/30/18 10:05 Laboratory results interpreted by me: 03/30/18 03/30/18 10:05 10:05 WBC 15.3 H Absolute Neutrophils 10.0 H Salicylates < 1.0 L Acetaminophen < 10 L Discharge - Discharge Clinical Impression: Heroin abuse Condition: Stable Disposition: PSYCH HOSP/UNIT
[2018-03-30 11:25] LABS: ABSOLUTE BASOPHILS # (AUTO) 0.2 10^3/uL (0.0-0.2); ABSOLUTE EOSINOPHILS # (AUTO) 0.3 10^3/uL (0.0-0.6); ABSOLUTE LYMPHOCYTES (AUTO) 3.5 10^3/uL (0.5-4.7); ABSOLUTE MONOCYTES (AUTO) 1.3 10^3/uL (0.1-1.4); BASOPHILS % (AUTO) 1.3 % (0-2); EOSINOPHILS % (AUTO) 2.1 % (0-6); HEMATOCRIT 42.9 % (37.9-51.0); HEMOGLOBIN 14.9 g/dL (13.5-17.0); LYMPHOCYTES % (AUTO) 22.9 % (13-45); MEAN CORPUSCULAR HEMOGLOBIN 29.7 pg (27.0-33.4); MEAN CORPUSCULAR HGB CONC 34.7 g/dL (32.0-36.0); MEAN CORPUSCULAR VOLUME 86 fl (80-97); MONOCYTES % (AUTO) 8.5 % (3-13); PLATELET COUNT 381 10^3/uL (150-450); RED BLOOD COUNT 5.02 10^6/uL (4.35-5.55); RED CELL DISTRIBUTION WIDTH 13.3 % (11.5-14.0); SEGMENTED NEUTROPHILS % (AUTO) 65.2 % (42-78); TOTAL CELLS COUNTED % (AUTO) 100 %; WHITE BLOOD COUNT 15.3 10^3/uL (4.0-10.5)
[2018-03-30 12:00] LABS: ACETAMINOPHEN < 10 ug/mL (10-30); ALANINE AMINOTRANSFERASE 24 U/L (21-72); ALBUMIN 4.5 g/dL (3.5-5.0); ALCOHOL < 10 mg/dL (NONE DETECTED); ALKALINE PHOSPHATASE 74 U/L (38-126); ANION GAP 17 (5-19); ASPARTATE AMINO TRANSFERASE 45 U/L (17-59); BILIRUBIN,DIRECT 0.4 mg/dL (0.0-0.4); BILIRUBIN,TOTAL 1.2 mg/dL (0.2-1.3); BLOOD UREA NITROGEN 18 mg/dL (7-20); CALCIUM 9.5 mg/dL (8.4-10.2); CARBON DIOXIDE 22 mmol/L (22-30); CHLORIDE 101 mmol/L (98-107); GLUCOSE 79 mg/dL (75-110); SALICYLATE < 1.0 mg/dL (2.0-20.0); SODIUM 139.7 mmol/L (137-145); TOTAL PROTEIN 7.4 g/dL (6.3-8.2)
--- NOTE | 2018-03-30 16:40 | PSYCHOLOGICAL NOTE ---
Psych Note - Psych Note Psych Note: Reason for consult: altered mental status Consent permissions: significant other; Shamika 27 yr old male presents found rolling on the ground. Pt found emotional crying, noted to have hx of heroin use, admits ot using heroin last night with meth. Pt denies any today. Clinician received phone call from patient's mother who discloses they are currently in [place] with the patient's older brother who is receiving open heart surgery. She reports she was notified the patient is in the hospital and disclosed the patient has significant substance abuse history. She continued to disclose concern the patient might have bipolar but the patient refuses to go to outpatient services. Patient is unable to state awake long enough for evaluation; however, patient gave consent for clinician to speak with his significant other, Shamika. Clinician spoke with patient's significant other, Shamika, who discloses that the patient has significant substance abuse history. She reports that she would like resource information in the hope the patient will receive substance abuse treatment. 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 The patient reported to the attending physician he used heroin and methamphetamine. Patient's family and significant other confirm the patient has a history of substance abuse. At this time, I appears the patient unintentionally overdosed ; however, the patient has not been able to confirm this. Once patient is able to communicate he will be evaluated.
[2018-03-30 19:42] LABS: APPEARANCE,URINE CLEAR; BILIRUBIN,URINE NEGATIVE (NEGATIVE); COLOR,URINE YELLOW; GLUCOSE, URINE NEGATIVE (NEGATIVE); KETONES,URINE 20 mg/dL (NEGATIVE); LEUKOCYTE ESTERASE,URINE NEGATIVE (NEGATIVE); NITRITE,URINE NEGATIVE (NEGATIVE); PROTEIN,URINE NEGATIVE (NEGATIVE)
[2018-03-30 19:54] LABS: URINE BARBITURATES SCREEN NEGATIVE; URINE BENZODIAZEPINES SCREEN NEGATIVE; URINE COCAINE SCREEN NEGATIVE; URINE MARIJUANA (THC) SCREEN UNCONFIRMED POSITIVE; URINE METHADONE SCREEN NEGATIVE; URINE PHENCYCLIDINE SCREEN NEGATIVE
--- NOTE | 2018-03-30 20:15 | ER Document Report ---
Doctor's Note Notes: 03/30/18 20:14 27-year-old male here for erratic behavior. Seen by previous physician. To be seen by mental health. Mental health is evaluated patient. Thinks that he is stable at this time to be discharged. States that he did shoot heroin and meth. Knows that he has a drug problem but does not want help at this time. Patient did not require Narcan. Currently a [id number] evaluation and exam was performed. I feel like patient does not need to be IVC'd at this point. Will DC at this time with resources. 03/30/18 20:15 03/30/18 20:16 Laboratory 03/30/18 03/30/18 03/30/18 10:05 10:05 19:00 WBC 15.3 H RBC 5.02 Hgb 14.9 Hct 42.9 MCV 86 MCH 29.7 MCHC 34.7 RDW 13.3 Plt Count 381 Seg Neutrophils % 65.2 Lymphocytes % 22.9 Monocytes % 8.5 Eosinophils % 2.1 Basophils % 1.3 Absolute Neutrophils 10.0 H Absolute Lymphocytes 3.5 Absolute Monocytes 1.3 Absolute Eosinophils 0.3 Absolute Basophils 0.2 Sodium 139.7 Potassium 4.0 Chloride 101 Carbon Dioxide 22 Anion Gap 17 BUN 18 Creatinine 1.23 Est GFR ( Amer) > 60 Est GFR (Non-Af Amer) > 60 Glucose 79 Calcium 9.5 Total Bilirubin 1.2 Direct Bilirubin 0.4 Neonat Total Bilirubin Not Reportable Neonat Direct Bilirubin Not Reportable Neonat Indirect Bili Not Reportable AST 45 ALT 24 Alkaline Phosphatase 74 Total Protein 7.4 Albumin 4.5 Urine Color YELLOW Urine Appearance CLEAR Urine pH 5.0 Ur Specific [place] 1.020 Urine Protein NEGATIVE Urine Glucose (UA) NEGATIVE Urine Ketones 20 H Urine Blood NEGATIVE Urine Nitrite NEGATIVE Urine Bilirubin NEGATIVE Urine Urobilinogen 2.0 H Ur Leukocyte Esterase NEGATIVE Urine WBC (Auto) 2 Urine RBC (Auto) 1 U Hyaline Cast (Auto) 25 Squamous Epi Cells Auto <1 Urine Mucus (Auto) FEW Urine Ascorbic Acid NEGATIVE Salicylates < 1.0 L Acetaminophen < 10 L Serum Alcohol < 10 Discharge - Discharge Clinical Impression: Heroin abuse Condition: Stable Disposition: PSYCH HOSP/UNIT Instructions: Ampetamine Abuse ([facility]), Narcotic Abuse ([facility])
[2018-03-30 20:33] VITALS: BP 129/89
--- NOTE | 2018-03-30 22:20 | EKG REPORT ---
SEVERITY:- ABNORMAL ECG - SINUS TACHYCARDIA RIGHT ATRIAL ABNORMALITY : Confirmed by: María Elena Callejas 30-Mar-2018 22:19:50
== END 2018-03-30 20:22 | disposition home or self-care (01) ==
LOC: ER 10:46
DX: F19.10 Other psychoactive substance abuse, uncomplicated (principal); F17.210 Nicotine dependence, cigarettes, uncomplicated
CPT/HCPCS: 93005; 99285; 96360; 36415; 80307 ×4; 85025; 80053; 81001; 93010; J7030

== ENCOUNTER → 2020-05-24 | Outpatient (CLI) | payer MEDICAID ==
--- NOTE | 2020-05-24 14:12 | RADIOLOGY REPORT (SQ) ---
EXAM DESCRIPTION: RIBS LEFT W/O PA CHEST IMAGES COMPLETED DATE/TIME: 05/24/2020 1:47 pm REASON FOR STUDY: PLEURODYNIA R07.81 PLEURODYNIA R06.02 SHORTNESS OF BREATH COMPARISON: None. NUMBER OF VIEWS: Four views. TECHNIQUE: Images acquired of the left ribs in the area of focal concern. LIMITATIONS: None. FINDINGS: RIBS: No acute displaced fracture. No worrisome bone lesions. LUNGS: Limited exam. No obvious pneumothorax. No pleural effusion. OTHER: No other significant finding. IMPRESSION: NO ACUTE DISPLACED RIB FRACTURE. COMMENT: SITE OF TRAUMA/COMPLAINT MARKED/STAMP COMPLETED: YES. TECHNICAL DOCUMENTATION: JOB ID: [id number] 2010 [employer]- All Rights Reserved Reading location - IP/workstation name: [email or web address]
--- NOTE | 2020-05-24 14:13 | RADIOLOGY REPORT (SQ) ---
EXAM DESCRIPTION: CHEST PA/LATERAL IMAGES COMPLETED DATE/TIME: 05/24/2020 1:47 pm REASON FOR STUDY: SHORTNESS OF BREATH COMPARISON: 04/09/2017 EXAM PARAMETERS: NUMBER OF VIEWS: two views TECHNIQUE: Digital Frontal and Lateral radiographic views of the chest acquired. RADIATION DOSE: NA LIMITATIONS: none FINDINGS: LUNGS AND PLEURA: No opacities, masses or pneumothorax. No pleural effusion. MEDIASTINUM AND HILAR STRUCTURES: No masses or contour abnormalities. HEART AND VASCULAR STRUCTURES: Heart normal size. No evidence for failure. BONES: No acute findings. HARDWARE: None in the chest. OTHER: No other significant finding. IMPRESSION: NO SIGNIFICANT RADIOGRAPHIC FINDING IN THE CHEST. TECHNICAL DOCUMENTATION: JOB ID: [id number] 2010 [employer]- All Rights Reserved Reading location - IP/workstation name: [email or web address]
== END ==
LOC: OD 12:44
PROVIDERS: ATTEND Physician Assistant
DX: R07.81 Pleurodynia (principal); R06.02 Shortness of breath
CPT/HCPCS: 71046

== ENCOUNTER 2020-07-30 10:46 | Emergency (ER) | payer MEDICAID ==
[2020-07-30] MEDS ORDERED: HYDROCODONE/ACETAMINOPHEN 5-325 MG TABLET PO ONE (11:35)
--- NOTE | 2020-07-30 11:36 | ER Document Report ---
HPI - HPI Patient complains to provider of: Ankle injury Time Seen by Provider: 07/30/20 11:30 Onset: Yesterday Onset/Duration: Sudden Quality of pain: Achy Pain Level: 3 Context: Patient states he fell from an 8 foot ladder landing on the grass. Patient states that he landed on his right foot and the ankle rolled. Patient denies any back pain. Patient denies any head injury or loss of consciousness. Associated Symptoms: Other - Right ankle and foot pain Exacerbated by: Standing, Movement, Walking Relieved by: Denies Similar symptoms previously: No Recently seen / treated by doctor: No - ROS ROS below otherwise negative: Yes Systems Reviewed and Negative: Yes All other systems reviewed and negative - NEURO Neurology: DENIES: Weakness - GASTROINTESTINAL Gastrointestinal: DENIES: Nausea - MUSCULOSKELETAL Musculoskeletal: REPORTS: Extremity pain, Swelling - DERM Skin Color: Normal Skin Problems: None Past Medical History - General Information source: Patient - Social History Smoking Status: Current Every Day Smoker Frequency of alcohol use: Social Drug Abuse: Marijuana Occupation: Construction Family History: None, Reviewed & Not Pertinent - Past Medical History Cardiac Medical History: Reports: Hx Hypertension Neurological Medical History: Reports: Hx Migraine Renal/ Medical History: Denies: Hx Peritoneal Dialysis Musculoskeletal Medical History: Reports Hx Musculoskeletal Deformity, Reports Hx Musculoskeletal Trauma Past Surgical History: Reports: Hx Cardiac Surgery - aortic valve, 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 IN LAST 30 DAYS: No - HEENT HEENT: Atraumatic, Normocephalic - NECK Neck: Normal Inspection - RESPIRATORY Respiratory: Breath Sounds Normal, No Respiratory Distress - CARDIOVASCULAR Cardiovascular: Regular Rhythm, No Murmur, Tachycardia Pulses: Normal: Dorsalis pedis - BACK Back: Normal Inspection Notes: No spinal midline tenderness, step-off or deformity - MUSCULOSKELETAL/EXTREMETIES Musculoskeletal/Extremeties: MAEW, Tender - Tenderness to medial aspect of right ankle, right midfoot tenderness, edema to medial malleolar area, Edema. negative: Eccymosis - NEURO Level of Consciousness: Awake, Alert, Appropriate Motor/Sensory: No Motor Deficit - DERM Integumentary: Warm, Dry, No Rash Course - Re-evaluation Re-evalutation: 07/30/20 13:16 Patient with an acute talus avulsion fracture, will immobilize and refer to orthopedics at this time. 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 - Vital Signs Vital signs: Temp Pulse Resp BP Pulse Ox 98.1 F 113 H 16 140/91 H 98 07/30/20 11:04 07/30/20 11:04 07/30/20 11:04 07/30/20 11:04 07/30/20 11:04 - Diagnostic Test Radiology reviewed: Image reviewed, Reports reviewed Procedures - Immobilization Right Ankle Pre-Proc Neuro Vasc Exam: Normal Immobilizer type: Short Leg Posterior Performed by: Provider assisted, PCT Post-Proc Neuro Vasc Exam: Normal Alignment checked and good: Yes Discharge - Discharge Clinical Impression: Avulsion fracture of talus Qualifiers: Encounter type: initial encounter Fracture type: closed Fracture alignment: displaced Laterality: right Qualified Code(s): S92.151A - Displaced avulsion fracture (chip fracture) of right talus, initial encounter for closed fracture Condition: Stable Disposition: HOME, SELF-CARE Instructions: Use of Crutches ([facility]), Foot Fracture ([facility]), Ice & Elevation ([facility]), Splint Precautions ([facility]) Additional Instructions: Return immediately for any new or worsening symptoms Followup with your primary care provider, call tomorrow to make a followup appointment Follow-up with orthopedics for further evaluation, call today to make a follow- up appointment Prescriptions: Hydrocodone/Acetaminophen [[place] 5-325 mg Tablet] 1 tab PO Q6 PRN #15 tablet PRN Reason: Referrals: LANDRY DELANEY PA-C [Primary Care Provider] - Follow up as needed [facility] [Provider Group] - Follow up tomorrow
--- NOTE | 2020-07-30 12:09 | RADIOLOGY REPORT (SQ) ---
EXAM DESCRIPTION: FOOT RIGHT COMPLETE IMAGES COMPLETED DATE/TIME: 07/30/2020 11:49 am REASON FOR STUDY: fall from ladder, r foot/ankle pain COMPARISON: None. NUMBER OF VIEWS: Three views. TECHNIQUE: AP, lateral and oblique radiographic images acquired of the right foot. LIMITATIONS: None. FINDINGS: MINERALIZATION: Normal. BONES: No acute fracture or dislocation. There is deformity of the 2nd digit that does not appear pa rticularly acute, but cannot entirely exclude lateral subluxation of the distal phalanx. JOINTS: No effusions. SOFT TISSUES: No soft tissue swelling. No foreign body. OTHER: No other significant finding. IMPRESSION: Cannot entirely exclude lateral subluxation of the 2nd distal phalanx although this may be nonacute. No other significant finding. TECHNICAL DOCUMENTATION: JOB ID: [id number] 2010 [employer]- All Rights Reserved Reading location - IP/workstation name: [email or web address]
--- NOTE | 2020-07-30 12:11 | RADIOLOGY REPORT (SQ) ---
EXAM DESCRIPTION: ANKLE RIGHT COMPLETE IMAGES COMPLETED DATE/TIME: 07/30/2020 11:49 am REASON FOR STUDY: fall from ladder, r foot/ankle pain COMPARISON: None. NUMBER OF VIEWS: Three views. TECHNIQUE: AP, lateral, and oblique radiographic images acquired of the right ankle. LIMITATIONS: None. FINDINGS: MINERALIZATION: Normal. BONES: There appears to be of an avulsion injury involving the dorsal aspect of the anterior process of the talus. This is seen on the lateral view. JOINTS: No effusions. SOFT TISSUES: No soft tissue swelling. No foreign body. OTHER: No other significant finding. IMPRESSION: Avulsion injury involving the talus as described. TECHNICAL DOCUMENTATION: JOB ID: [id number] 2010 [email or web address]- All Rights Reserved Reading location - IP/workstation name: [email or web address]
[2020-07-30 13:40] VITALS: BP 134/82
== END 2020-07-30 13:39 | disposition home or self-care (01) ==
LOC: ER 10:46
DX: S92.151A Displaced avulsion fracture (chip fracture) of right talus, initial encounter for closed fracture (principal); S99.911A Unspecified injury of right ankle, initial encounter; M79.671 Pain in right foot; M25.571 Pain in right ankle and joints of right foot; M79.89 Other specified soft tissue disorders; W11.XXXA Fall on and from ladder, initial encounter; I10 Essential (primary) hypertension; F17.200 Nicotine dependence, unspecified, uncomplicated
CPT/HCPCS: 99283